=== PATIENT | male | born 1950 | race Caucasian/White ===

== ENCOUNTER 2017-01-26 08:01 | Outpatient (CLI) | payer MEDICARE, BC ==
[2017-01-26 09:11] LABS: #Basophils 0.1 thou/uL (0.0-0.2); #Eosinphils 0.1 thou/uL (0.0-0.7); #Lymphocytes 1.7 thou/uL (1.20-3.40); #Monocytes 0.5 thou/uL (0.11-0.59); #Neutrophils 3.8 thou/uL (1.40-6.50); %Eosinophils 1.4 % (0.0-10.0); %Lymphocytes 27.3 % (21.0-51.0); %Monocytes 8.4 % (0.0-10.0); %Neutrophils 61.9 % (42.0-75.0); Hemoglobin 15.2 g/dL (14.0-18.0); Mean Corpuscular HGB CONC 33.7 g/dL (32.0-36.0); Mean Corpuscular Hemoglobin 33.2 pg (27.0-31.0); Mean Corpuscular Volume 98.7 fl (80.0-94.0); Mean Platelet Volume 4.9 fL (7.4-10.4); Platelet Count 201 thou/uL (130-400); RBC Distribution Width 11.5 % (11.5-14.5); Red Blood Cell (RBC) Count 4.56 mill/uL (4.70-6.10); White Blood Cell (WBC) Count 6.1 thou/uL (4.8-10.8)
[2017-01-26 09:20] LABS: Hemoglobin A1c 5.3 % (4.0-6.0)
[2017-01-26 09:22] LABS: ALT (SGPT) 31 U/L (8-55); Alkaline Phosphatase 63 U/L (40-150); Anion Gap 23 mmol/L (10-20); BUN (Urea Nitrogen) 15 mg/dL (8.4-25.7); Bilirubin, Total 0.6 mg/dL (0.2-1.2); Calc. Creatinine Clearance 0 mL/min (70-130); Calcium 9.6 mg/dL (7.8-10.44); Carbon Dioxide 17 mmol/L (23-31); Chloride 107 mmol/L (98-107); Cholesterol 195 mg/dl (< 200 Desired); Estimated GFR-MDRD Greater than 90; Globulin 3.6 g/dL (2.4-3.5); Glucose 122 mg/dL (80-115); HDL Cholesterol 66 mg/dL (>60 Neg Risk); LDL Cholesterol, Calculated 113 mg/dL; Potassium 5.1 mmol/L (3.5-5.1); Protein, Total 7.6 g/dL (5.8-8.1); Sodium 142 mmol/L (136-145); Triglycerides 80 mg/dL (Less than 150)
[2017-01-26 09:39] LABS: AST (SGOT) 32 U/L (5-34)
[2017-01-27 18:29] LABS: Creatinine, Urine 90.01 mg/dL (63-166); Microalbumin Urine Less than 1.0 mg/dL (0.5-50.0); Microalbumin/Creat Ratio 11.1 mg/g (Less than 30)
== END 2017-01-26 08:02 | disposition home or self-care (01) ==
LOC: NAV LAB 08:01
PROVIDERS: ATTEND Internal Medicine
DX: Z12.5 Encounter for screening for malignant neoplasm of prostate (principal); E78.5 Hyperlipidemia, unspecified; E11.9 Type 2 diabetes mellitus without complications; F32.9 Major depressive disorder, single episode, unspecified
CPT/HCPCS: 36415; 80053; 80061; 82043; 83036; 85025; G0103

== ENCOUNTER 2017-09-26 14:27 | Inpatient (IN) | payer MEDICARE, BC ==
[2017-09-26 14:29] VITALS: BMI 33.6
[2017-09-26] MEDS ORDERED: Bisacodyl 5 MG TAB PO PRN (18:11)
[2017-09-26] MEDS ORDERED: Docusate 100 MG CAP PO PRN (18:11)
[2017-09-26] MEDS ORDERED: HYDROcodone/Acetaminophen 10/325 mg Tablet PO PRN (18:11)
[2017-09-26] MEDS ORDERED: Bisacodyl 10 MG SUPP PR PRN (18:11)
[2017-09-26] MEDS ORDERED: Ondansetron ODT 4 MG TAB PO PRN (18:14)
[2017-09-26] MEDS ORDERED: Dextrose 5% in Water 1,000 ML IV PRN (18:16)
[2017-09-26] MEDS ORDERED: Dextrose 50% Abboject 50 ML SYRINGE SLOW IVP PRN (18:16)
[2017-09-26] MEDS ORDERED: HumaLOG 300 UNITS/3 ML VIAL SC PRN ×2 (18:16)
[2017-09-26] MEDS: Labetalol 100 MG TAB PO SCH (20:38)
[2017-09-26] MEDS: traMADol HCl 50 MG TAB PO SCH (20:39)
[2017-09-26] MEDS: diphenhydrAMINE 25 MG CAP PO PRN (20:39)
[2017-09-26] MEDS: Enoxaparin Sodium 30 MG/0.3 ML SYRINGE SC SCH (20:39)
[2017-09-27 06:51] LABS: Anion Gap 14 mmol/L (10-20); BUN (Urea Nitrogen) 17 mg/dL (8.4-25.7); Calc. Creatinine Clearance 165 mL/min (70-130); Carbon Dioxide 25 mmol/L (23-31); Chloride 102 mmol/L (98-107); Estimated GFR-MDRD Greater than 90; Glucose 105 mg/dL (80-115); Potassium 3.6 mmol/L (3.5-5.1); Sodium 137 mmol/L (136-145)
[2017-09-27 06:54] LABS: #Basophils 0.1 thou/uL (0.0-0.2); #Eosinphils 0.3 thou/uL (0.0-0.7); #Lymphocytes 1.6 thou/uL (1.20-3.40); #Monocytes 1.2 thou/uL (0.11-0.59); %Basophils 1.1 % (0.0-1.0); %Lymphocytes 15.9 % (21.0-51.0); %Neutrophils 68.1 % (42.0-75.0); Mean Corpuscular HGB CONC 33.3 g/dL (32.0-36.0); Mean Corpuscular Hemoglobin 31.8 pg (27.0-31.0); Mean Corpuscular Volume 95.5 fl (80.0-94.0); Mean Platelet Volume 7.5 fL (7.4-10.4); Platelet Count 200 thou/uL (130-400); RBC Distribution Width 11.2 % (11.5-14.5); Red Blood Cell (RBC) Count 3.15 mill/uL (4.70-6.10); White Blood Cell (WBC) Count 10.3 thou/uL (4.8-10.8)
[2017-09-27] MEDS: Fish Oil 1,000 MG CAP PO SCH (09:09)
[2017-09-27] MEDS: Lisinopril 20 MG TAB PO SCH (09:09)
[2017-09-27] MEDS: Labetalol 100 MG TAB PO SCH ×2 (09:09→20:51)
[2017-09-27] MEDS: Aspirin 81 mg Enteric Coated Tablet PO SCH (09:10)
[2017-09-27] MEDS: Hydrochlorothiazide 25 MG TAB PO SCH (09:10)
[2017-09-27] MEDS: traMADol HCl 50 MG TAB PO SCH ×6 (09:10→20:55)
[2017-09-27] MEDS: metFORMIN 500 MG TAB PO SCH (09:10)
[2017-09-27] MEDS: Atorvastatin Calcium 40 MG TAB PO SCH (09:10)
[2017-09-27] MEDS: Ezetimibe 10 MG TAB PO SCH (09:10)
[2017-09-27] MEDS: NIFEdipine XL 30 MG TAB PO SCH (09:10)
[2017-09-27] MEDS: Enoxaparin Sodium 30 MG/0.3 ML SYRINGE SC SCH ×2 (09:11→20:51)
[2017-09-27] MEDS ORDERED: PARoxetine 20 MG TAB PO SCH ×2 (10:45→21:00)
[2017-09-27] MEDS ORDERED: Prevnar 13-Val Conj/PF 0.5 ML SYRINGE IM ONE (12:00)
--- NOTE | 2017-09-27 12:01 | HP ---
DATE OF EXAMINATION: 09/27/2017 CHIEF COMPLAINT: Status post bilateral total knee replacement for physical therapy. BRIEF HISTORY: This is a very pleasant 66-year-old male who underwent bilateral total knee replacement by Dr. Shell at [facility]. No complications. He has been transf erred here for therapy. Currently, Mr. Slade states other than some pain which is well controlled wi th his medications he states that he just wants to get moving and get home. He denies any chest pain or shortness of breath. Denies any fever or chills. Denies any nausea, vomiting or diarrhea. PAST MEDICAL HISTORY: 1. Diabetes mellitus type 2. 2. Hypertension. 3. Dyslipidemia. 4. Degenerative joint disease. 5. Depression and anxiety. PAST SURGICAL HISTORY: 1. 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 He has bilateral arm prosthesis: 2. Recent bilateral total knee replacement. ALLERGIES: No known drug allergies. FAMILY HISTORY: Noncontributory to current admission. PSYCHOSOCIAL HISTORY: No documented tobacco, alcohol or IV drug abuse. He is , active and in dependent. REVIEW OF SYSTEMS: CARDIOVASCULAR: Denies any chest pain, shortness of breath, palpitations, paroxysmal nocturnal dyspn ea, orthopnea, pedal edema. RESPIRATORY: Denies any chronic cough, expectoration or pleuritic type chest pain. GASTROINTESTINAL: Denies any nausea, vomiting, diarrhea, constipation, hematemesis, melena, hematoch ezia. GENITOURINARY: Denies any frequency, urgency, dysuria or hematuria. INTERNAL AUDIT MANAGER: No focal numbness, weakness, fainting spells. HEENT: No difficulty with speech, vision, hearing or swallowing. PHYSICAL EXAMINATION: GENERAL: Very pleasant 66-year-old male resting comfortably in no apparent distress. He r esponds appropriately to questions. He is alert, awake, and oriented x3. No family at bedside. VITAL SIGNS: He is afebrile, heart rate is 77, respirations 20, oxygen saturation 92% on room air, b lood pressure 122/60. HEENT: Normocephalic, atraumatic. Pupils equally reacting to light and accommodation. NECK: No JVD, thyromegaly, cervical adenopathy, throat exudates or carotid bruits. CARDIOVASCULAR: S1, S2 plus, rate and rhythm regular. RESPIRATORY: Normal vesicular breath sounds heard in all lung kevin. ABDOMEN: Soft, nontender, obese. Bowel sounds heard in all quadrants. EXTREMITIES: Without cyanosis or clubbing. Bilateral legs with VINICIUS hose, bilateral knees incision w ith dressing, trace edema bilateral lower extremities. Bilateral upper extremity with prosthesis. INTERNAL AUDIT MANAGER: Generalized weakness, otherwise nonfocal. LABORATORY VALUES: White count is 10.3, H&H is 10 and 30.1. Sodium 137, potassium 3.6. BUN and cre atinine is 17 and 0.7. Blood sugars are 130, 104, 104, 105. IMPRESSION: 1. Degenerative joint disease status post bilateral total knee replacement. 2. Diabetes mellitus type 2, well controlled. 3. Hypertension, well controlled. 4. Dyslipidemia. 5. Deconditioning. 6. Depression and anxiety. 7. Bilateral upper extremity forearm amputation, partial forearm amputation secondary to electrocuti on. PLAN: 1. Continue incision care. 2. 1800 calorie heart healthy ADA diet. 3. Resume home medications. 4. Accu-Cheks with sliding scale coverage. 5. Deep venous thrombosis and stress ulcer prophylaxis. 6. Decubitus precautions. 7. Physical therapy and occupational therapy. 8. Routine laboratory values. 9. Discussed with patient in detail and all questions answered. 10. No family at bedside. 11. Estimated length of stay 7-10 days.
[2017-09-27] MEDS ORDERED: traMADol HCl 50 MG TAB PO SCH (12:45)
[2017-09-27] MEDS: PARoxetine 20 MG TAB PO SCH (20:54)
[2017-09-28] MEDS: Enoxaparin Sodium 30 MG/0.3 ML SYRINGE SC SCH ×2 (08:25→20:25)
[2017-09-28] MEDS: Labetalol 100 MG TAB PO SCH ×2 (08:26→20:24)
[2017-09-28] MEDS: metFORMIN 500 MG TAB PO SCH (08:27)
[2017-09-28] MEDS: NIFEdipine XL 30 MG TAB PO SCH (08:27)
[2017-09-28] MEDS: Atorvastatin Calcium 40 MG TAB PO SCH (08:27)
[2017-09-28] MEDS: Fish Oil 1,000 MG CAP PO SCH (08:27)
[2017-09-28] MEDS: Hydrochlorothiazide 25 MG TAB PO SCH (08:27)
[2017-09-28] MEDS: Ezetimibe 10 MG TAB PO SCH (08:27)
[2017-09-28] MEDS: traMADol HCl 50 MG TAB PO SCH ×5 (08:28→22:20)
[2017-09-28] MEDS: Lisinopril 20 MG TAB PO SCH (08:28)
[2017-09-28] MEDS: Aspirin 81 mg Enteric Coated Tablet PO SCH (08:28)
[2017-09-28] MEDS ORDERED: PARoxetine 20 MG TAB PO SCH (09:00)
--- NOTE | 2017-09-28 15:38 | PRG ---
DATE OF SERVICE: 09/28/2017 SUBJECTIVE: Mr. Slade is doing well except he is having some mucousy incontinence from his bowels an y time he strains or coughs. He is doing well otherwise. OBJECTIVE: VITAL SIGNS: He is afebrile, heart rate 75, respirations 18, oxygen saturation 97% on room air, bloo d pressure 124/66. CARDIOVASCULAR SYSTEM: S1, S2 plus. RESPIRATORY SYSTEM: Normal vesicular breath sounds. ABDOMEN: Soft, nontender, bowel sounds heard in all quadrants. EXTREMITIES: Without cyanosis or clubbing. Both knee incision with dressing. CENTRAL NERVOUS SYSTEM: Grossly nonfocal. LABORATORY DATA: Blood sugars are 104, 115, 114, 106, and 104. IMPRESSION: 1. Status post bilateral total knee replacement. 2. Diabetes mellitus type 2. 3. Hypertension. 4. Dyslipidemia. 5. Bowel incontinence. 6. Depression and anxiety. PLAN: 1. Continue current medications. 2. Nutritional support. 3. DVT and stress ulcer prophylaxis. 4. Decubitus precautions. 5. Incision care. 6. Monitor bowel output and make sure he is not on any regular stool softeners.
[2017-09-28] MEDS: diphenhydrAMINE 25 MG CAP PO PRN (20:23)
[2017-09-28] MEDS: PARoxetine 20 MG TAB PO SCH (20:24)
[2017-09-29] MEDS: Hydrochlorothiazide 25 MG TAB PO SCH (08:43)
[2017-09-29] MEDS: Atorvastatin Calcium 40 MG TAB PO SCH (08:43)
[2017-09-29] MEDS: Lisinopril 20 MG TAB PO SCH (08:43)
[2017-09-29] MEDS: Aspirin 81 mg Enteric Coated Tablet PO SCH (08:43)
[2017-09-29] MEDS: Ezetimibe 10 MG TAB PO SCH (08:43)
[2017-09-29] MEDS: metFORMIN 500 MG TAB PO SCH (08:43)
[2017-09-29] MEDS: Labetalol 100 MG TAB PO SCH ×2 (08:44→20:38)
[2017-09-29] MEDS: traMADol HCl 50 MG TAB PO SCH ×4 (08:44→20:47)
[2017-09-29] MEDS: NIFEdipine XL 30 MG TAB PO SCH (08:44)
[2017-09-29] MEDS: Enoxaparin Sodium 30 MG/0.3 ML SYRINGE SC SCH ×2 (08:45→20:37)
--- NOTE | 2017-09-29 12:58 | PRG ---
DATE OF SERVICE: 09/29/2017 SUBJECTIVE: Mr. Slade is doing the same. Denies any complaints, continues to have increased gas and some loss of control when he is passing gas or he is moving. I did stop his fish oil capsule daily yesterday. I will start him on some probiotics and see if that helps. I cannot see any other reason why he is having this issue. OBJECTIVE: VITAL SIGNS: He is afebrile, heart rate is 72, respirations are 16, blood pressure 131/68, oxygen sa turation is 96% on room air. CARDIOVASCULAR: S1, S2 plus. RESPIRATORY: Normal vesicular breath sounds. ABDOMEN: Soft, nontender, bowel sounds heard in all quadrants. EXTREMITIES: Bilateral upper forearm amputation due to an electrocution injury, bilateral lower extr emities with VINICIUS hose. Knee incision site with dressing. CENTRAL NERVOUS SYSTEM: Grossly nonfocal. LABORATORY VALUES: His blood sugars are 114, 106, 104, 104, 102, and 106. IMPRESSION: 1. Bilateral knee osteoarthritis, status post knee replacement. 2. Diabetes mellitus type 2, excellent control. 3. Hypertension, well controlled. 4. Dyslipidemia. 5. Depression and anxiety. 6. Occasional episodes of bowel incontinence. PLAN: 1. Continue to keep him off his fish oil capsule. 2. Add Florastor 250 mg b.i.d. 3. Incision care. 4. DVT and stress ulcer prophylaxis. 5. Decubitus precautions. 6. 1800 calorie heart-healthy ADA diet. 7. Routine laboratory values. 8. Discussed with patient in detail and all questions answered.
[2017-09-29] MEDS: Saccharomyces boulardii 250 MG CAP PO SCH (20:38)
[2017-09-29] MEDS: diphenhydrAMINE 25 MG CAP PO PRN (20:41)
[2017-09-29] MEDS: PARoxetine 20 MG TAB PO SCH (20:42)
[2017-09-30] MEDS: Aspirin 81 mg Enteric Coated Tablet PO SCH (08:21)
[2017-09-30] MEDS: Enoxaparin Sodium 30 MG/0.3 ML SYRINGE SC SCH ×2 (08:21→20:05)
[2017-09-30] MEDS: Atorvastatin Calcium 40 MG TAB PO SCH (08:21)
[2017-09-30] MEDS: metFORMIN 500 MG TAB PO SCH (08:21)
[2017-09-30] MEDS: Ezetimibe 10 MG TAB PO SCH (08:22)
[2017-09-30] MEDS: Hydrochlorothiazide 25 MG TAB PO SCH (08:22)
[2017-09-30] MEDS: Labetalol 100 MG TAB PO SCH ×2 (08:22→20:05)
[2017-09-30] MEDS: NIFEdipine XL 30 MG TAB PO SCH (08:23)
[2017-09-30] MEDS: Lisinopril 20 MG TAB PO SCH (08:23)
[2017-09-30] MEDS: Saccharomyces boulardii 250 MG CAP PO SCH ×2 (08:24→20:05)
[2017-09-30] MEDS: traMADol HCl 50 MG TAB PO SCH ×5 (08:24→20:09)
--- NOTE | 2017-09-30 13:31 | PRG ---
DATE OF SERVICE: 09/30/2017 SUBJECTIVE: Mr. Slade is doing well. He had a bowel movement. He denies any further leakage. He i s complaining of some pressure sensation in his right ear. His spouse is in the room. No other conc erns or questions. OBJECTIVE: VITAL SIGNS: He is afebrile, heart rate 70, respirations 18, oxygen sats 100, blood pressure 148/69. CARDIOVASCULAR SYSTEM: S1, S2 plus. RESPIRATORY SYSTEM: Normal vesicular breath sounds. ABDOMEN: Soft, nontender, bowel sounds heard in all quadrants. EXTREMITIES: Without cyanosis or clubbing. Bilateral knee incision with dressing. Bilateral upper extremity, forearm amputation secondary to electrocution injury. LABORATORY DATA: His blood sugars are 107, 98, 100 and 109. IMPRESSION: 1. Diabetes mellitus type 2. 2. Hypertension. 3. Dyslipidemia. 4. Depression and anxiety. 5. Resolved bowel incontinence. 6. Bilateral knee osteoarthritis, status post knee replacement. 7. Right ear is showing serous otitis. No impaction of cerumen. PLAN: 1. Increase p.o. fluids. 2. Continue current medications. 3. DVT and stress ulcer prophylaxis. 4. Decubitus precautions. 5. A 1800 calorie Heart healthy ADA diet. 6. Physical therapy. 7. Routine laboratory values. 8. I discussed with the family in detail and all questions answered. 9. Anticipate discharging home by the end of this week if he continues to improve.
[2017-09-30] MEDS: diphenhydrAMINE 25 MG CAP PO PRN (20:04)
[2017-09-30] MEDS: PARoxetine 20 MG TAB PO SCH (20:05)
[2017-10-01] MEDS: metFORMIN 500 MG TAB PO SCH (08:15)
[2017-10-01] MEDS: Ezetimibe 10 MG TAB PO SCH (08:16)
[2017-10-01] MEDS: Enoxaparin Sodium 30 MG/0.3 ML SYRINGE SC SCH ×2 (08:16→20:04)
[2017-10-01] MEDS: Labetalol 100 MG TAB PO SCH ×2 (08:16→20:04)
[2017-10-01] MEDS: Aspirin 81 mg Enteric Coated Tablet PO SCH (08:16)
[2017-10-01] MEDS: Hydrochlorothiazide 25 MG TAB PO SCH (08:16)
[2017-10-01] MEDS: Atorvastatin Calcium 40 MG TAB PO SCH (08:16)
[2017-10-01] MEDS: NIFEdipine XL 30 MG TAB PO SCH (08:17)
[2017-10-01] MEDS: Lisinopril 20 MG TAB PO SCH (08:17)
[2017-10-01] MEDS: Saccharomyces boulardii 250 MG CAP PO SCH ×2 (08:18→20:05)
[2017-10-01] MEDS: traMADol HCl 50 MG TAB PO SCH ×4 (08:18→20:11)
--- NOTE | 2017-10-01 13:32 | PRG ---
DATE OF SERVICE: 10/01/2017 SUBJECTIVE: Mr. Slade is doing well. Denies any complaints, resting comfortably, tolerating his the rapy. Bowel sounds are regular. OBJECTIVE: VITAL SIGNS: He is afebrile, heart rate 65, respirations 20, blood pressure 134/60. Oxygen saturati on is 100% on room air. CARDIOVASCULAR: S1, S2 plus. RESPIRATORY: Normal vesicular breath sounds. ABDOMEN: Soft, obese, nontender, bowel sounds heard in all quadrants. EXTREMITIES: Without cyanosis or clubbing. Bilateral knee incision with dressing. Bilateral VINICIUS ho se present. LABORATORY VALUES: Blood sugars are 100, 109, 114, 121, 105 and 108. IMPRESSION: 1. Bilateral total knee replacement for degenerative joint disease. 2. Diabetes mellitus type 2, well controlled. 3. Depression and anxiety. 4. Bilateral forearm amputation following electrocution injury with prosthesis. 5. Hypertension, well controlled. 6. Dyslipidemia. PLAN: 1. Continue current medications. 2. Nutritional support. 3. DVT and stress ulcer prophylaxis. 4. Decubitus precautions. 5. 1800 calorie heart healthy ADA diet. 6. Accu-Cheks and sliding scale coverage. 7. Incision care. 8. I discussed with the patient in detail, all questions answered.
[2017-10-01] MEDS: PARoxetine 20 MG TAB PO SCH (20:05)
[2017-10-01] MEDS: diphenhydrAMINE 25 MG CAP PO PRN (20:05)
[2017-10-02] MEDS: Labetalol 100 MG TAB PO SCH ×2 (08:46→21:14)
[2017-10-02] MEDS: Lisinopril 20 MG TAB PO SCH (08:46)
[2017-10-02] MEDS: NIFEdipine XL 30 MG TAB PO SCH (08:46)
[2017-10-02] MEDS: metFORMIN 500 MG TAB PO SCH (08:46)
[2017-10-02] MEDS: Aspirin 81 mg Enteric Coated Tablet PO SCH (08:47)
[2017-10-02] MEDS: Enoxaparin Sodium 30 MG/0.3 ML SYRINGE SC SCH ×2 (08:47→21:14)
[2017-10-02] MEDS: Atorvastatin Calcium 40 MG TAB PO SCH (08:47)
[2017-10-02] MEDS: Ezetimibe 10 MG TAB PO SCH (08:47)
[2017-10-02] MEDS: Saccharomyces boulardii 250 MG CAP PO SCH ×2 (08:47→21:16)
[2017-10-02] MEDS: Hydrochlorothiazide 25 MG TAB PO SCH (08:47)
[2017-10-02] MEDS: traMADol HCl 50 MG TAB PO SCH ×4 (08:48→22:37)
--- NOTE | 2017-10-02 13:39 | PRG ---
DATE OF SERVICE: 10/02/2017 SUBJECTIVE: Mr. Slade is doing well. Denies any complaints except he states he had loose bowels thi s morning. He called it diarrhea. Discussed with nursing and he apparently had one bowel movement w ith therapy this morning. OBJECTIVE: VITAL SIGNS: He is afebrile, heart rate is 77, respirations 18, blood pressure 135/62, oxygen satura tion 100% on room air. CARDIOVASCULAR: S1, S2 plus. RESPIRATORY: Normal vesicular breath sounds. ABDOMEN: Soft, nontender, bowel sounds heard in all quadrants, obese. EXTREMITIES: Without cyanosis or clubbing. Bilateral knee incision with dressing. Bilateral upper extremity forearm amputation due to electrocution injury and has prosthesis. REPRODUCTION ORDER PROCESSOR: Improving deconditioning. . Reviewing PT notes and he did walk about 50 feet this morning. Apparently he was noticed to need xin e cueing. We will continue to monitor. IMPRESSION: 1. Degenerative joint disease status post bilateral total knee replacement. 2. Diabetes mellitus type 2, well controlled. 3. Hypertension. 4. Dyslipidemia. 5. Depression and anxiety. 6. Possible loose bowel movement. PLAN: 1. Continue probiotic. 2. He is not on any stool softener or MiraLax 3. Encourage diet. 4. 1800 calorie Heart healthy ADA high fiber diet. 5. Physical therapy. 6. Incision care. 7. DVT and stress ulcer prophylaxis. 8. Accu-Cheks. 9. Discussed with patient and spouse in detail and all questions answered.
[2017-10-02] MEDS: PARoxetine 20 MG TAB PO SCH (21:16)
[2017-10-03] MEDS: Aspirin 81 mg Enteric Coated Tablet PO SCH (08:28)
[2017-10-03] MEDS: NIFEdipine XL 30 MG TAB PO SCH (08:28)
[2017-10-03] MEDS: Saccharomyces boulardii 250 MG CAP PO SCH ×2 (08:28→20:14)
[2017-10-03] MEDS: Atorvastatin Calcium 40 MG TAB PO SCH (08:28)
[2017-10-03] MEDS: metFORMIN 500 MG TAB PO SCH (08:28)
[2017-10-03] MEDS: Ezetimibe 10 MG TAB PO SCH (08:29)
[2017-10-03] MEDS: Labetalol 100 MG TAB PO SCH ×2 (08:29→20:12)
[2017-10-03] MEDS: traMADol HCl 50 MG TAB PO SCH ×4 (08:29→20:14)
[2017-10-03] MEDS: Hydrochlorothiazide 25 MG TAB PO SCH (08:29)
[2017-10-03] MEDS: Lisinopril 20 MG TAB PO SCH (08:29)
[2017-10-03] MEDS: Enoxaparin Sodium 30 MG/0.3 ML SYRINGE SC SCH ×2 (08:30→20:12)
--- NOTE | 2017-10-03 13:03 | PRG ---
DATE OF SERVICE: 10/03/2017 SUBJECTIVE: Mr. Slade is doing the same except he is having some mucousy stools again. He states th at normally at home, he takes 2 Imodium and that takes care of it. Denies any abdominal pain, fever or chills. He also states that his left knee seems to buckle after taking 15 steps. I called therap y and left them a message for them to call me back to see if they have any concerns or questions. OBJECTIVE: VITAL SIGNS: He is afebrile, heart rate is 70, respirations 18, oxygen saturation is 100% on room ai r, and blood pressure 133/63. CARDIOVASCULAR SYSTEM: S1, S2 plus. RESPIRATORY SYSTEM: Normal vesicular breath sounds. ABDOMEN: Soft, nontender, bowel sounds heard in all quadrants. EXTREMITIES: Without cyanosis or clubbing. Bilateral knee incision with dressing. IMPRESSION: 1. Loose stools, apparently this has happened to him in the past and Imodium worked, so we will orde r some Imodium. 2. Degenerative joint disease, status post bilateral total knee replacement. 3. Diabetes mellitus type 2, well controlled. 4. His blood sugars are 113, 120, 122 and 131. 5. Hypertension. 6. Dyslipidemia. PLAN: 1. Continue current medications. 2. Accu-Cheks decreased to b.i.d. 3. A 1800 calorie Heart healthy ADA diet. 4. Imodium 2 tablets q.6 hours p.r.n. 5. High fiber diet. 6. Increase p.o. fluid. 7. Await therapy's callback. 8. Routine laboratory values. 9. No family at bedside.
[2017-10-03] MEDS: Loperamide HCl 2 MG CAP PO PRN ×2 (13:30→20:14)
[2017-10-03] MEDS: PARoxetine 20 MG TAB PO SCH (20:13)
[2017-10-03] MEDS: diphenhydrAMINE 25 MG CAP PO PRN (20:14)
[2017-10-04] MEDS: Enoxaparin Sodium 30 MG/0.3 ML SYRINGE SC SCH ×2 (08:51→20:08)
[2017-10-04] MEDS: Atorvastatin Calcium 40 MG TAB PO SCH (08:52)
[2017-10-04] MEDS: traMADol HCl 50 MG TAB PO SCH ×4 (08:52→20:10)
[2017-10-04] MEDS: Saccharomyces boulardii 250 MG CAP PO SCH ×2 (08:52→20:09)
[2017-10-04] MEDS: Lisinopril 20 MG TAB PO SCH (08:53)
[2017-10-04] MEDS: Aspirin 81 mg Enteric Coated Tablet PO SCH (08:53)
[2017-10-04] MEDS: Ezetimibe 10 MG TAB PO SCH (08:53)
[2017-10-04] MEDS: Labetalol 100 MG TAB PO SCH ×2 (08:53→20:08)
[2017-10-04] MEDS: NIFEdipine XL 30 MG TAB PO SCH (08:53)
[2017-10-04] MEDS: metFORMIN 500 MG TAB PO SCH (08:54)
[2017-10-04] MEDS: Hydrochlorothiazide 25 MG TAB PO SCH (08:54)
--- NOTE | 2017-10-04 09:20 | PRG ---
DATE OF SERVICE: 10/04/2017 SUBJECTIVE: Mr. Slade is doing well. His diarrhea has pretty much resolved. He is still having a l ot of gas, mostly related to his pain medications. I advised him that we will try some simethicone. He is doing well otherwise. I discussed with therapy yesterday and therapy is happy with his progre ss, they do not see any issues except for some limited extension of his left knee and they are workin g on it. No other concerns or questions. He has an appointment with Dr. Shell on Saturday. OBJECTIVE: VITAL SIGNS: He is afebrile, heart rate 73, respirations 20, oxygen saturation 92%, blood pressure 1 27/59. CARDIOVASCULAR: S1, S2 plus. RESPIRATORY: Normal vesicular breath sounds. ABDOMEN: Soft, obese, nontender, bowel sounds heard in all quadrants. EXTREMITIES: Without cyanosis or clubbing. Bilateral knee incision with dressing. CENTRAL NERVOUS SYSTEM: Grossly nonfocal. IMPRESSION: 1. Bilateral total knee replacement for degenerative joint disease. 2. Diabetes mellitus type 2, well controlled. 3. Hypertension. 4. Dyslipidemia. 5. Depression and anxiety. 6. Increase gas, possibly related to gastritis from his pain medications. PLAN: 1. Trial of simethicone 160 mg t.i.d. 2. Continue current medications. 3. Incision care. 4. DVT and stress ulcer prophylaxis. 5. Decubitus precautions. 6. 1800 calorie heart healthy ADA diet. 7. Recheck laboratories in the morning. 8. Follow up with Dr. Shell on Saturday. 9. Dr. Dye on-call this weekend. Discussed with patient in detail and all questions answered.
[2017-10-04] MEDS: PARoxetine 20 MG TAB PO SCH (20:09)
[2017-10-04] MEDS: Simethicone Chewable 80 MG TAB PO PRN (20:10)
[2017-10-04] MEDS: diphenhydrAMINE 25 MG CAP PO PRN (20:10)
[2017-10-05 05:53] LABS: Band 3 % (5-11); Eosinophils 1 % (0-10); Hemoglobin 11.6 g/dL (14.0-18.0); Lymphocytes 32 % (21-51); MDiff Complete? YES; Mean Corpuscular HGB CONC 32.6 g/dL (32.0-36.0); Mean Corpuscular Hemoglobin 30.8 pg (27.0-31.0); Mean Corpuscular Volume 94.3 fl (80.0-94.0); Mean Platelet Volume 5.7 fL (7.4-10.4); Monocytes 10 % (0-10); Neutrophil 54 % (42-75); PLT Morphology Comment Appears Increased; Platelet Count 592 thou/uL (130-400); RBC Distribution Width 11.4 % (11.5-14.5); RBC Morphology Normal; Red Blood Cell (RBC) Count 3.77 mill/uL (4.70-6.10); White Blood Cell (WBC) Count 9.9 thou/uL (4.8-10.8)
[2017-10-05 05:54] LABS: Anion Gap 14 mmol/L (10-20); BUN (Urea Nitrogen) 20 mg/dL (8.4-25.7); Calc. Creatinine Clearance 154 mL/min (70-130); Calcium 9.5 mg/dL (7.8-10.44); Carbon Dioxide 25 mmol/L (23-31); Chloride 102 mmol/L (98-107); Estimated GFR-MDRD Greater than 90; Glucose 108 mg/dL (80-115); Potassium 3.8 mmol/L (3.5-5.1); Sodium 137 mmol/L (136-145)
[2017-10-05] MEDS: metFORMIN 500 MG TAB PO SCH (08:27)
[2017-10-05] MEDS: Atorvastatin Calcium 40 MG TAB PO SCH (08:27)
[2017-10-05] MEDS: Aspirin 81 mg Enteric Coated Tablet PO SCH (08:27)
[2017-10-05] MEDS: Enoxaparin Sodium 30 MG/0.3 ML SYRINGE SC SCH ×2 (08:27→20:17)
[2017-10-05] MEDS: Ezetimibe 10 MG TAB PO SCH (08:28)
[2017-10-05] MEDS: Hydrochlorothiazide 25 MG TAB PO SCH (08:28)
[2017-10-05] MEDS: Labetalol 100 MG TAB PO SCH ×2 (08:28→20:17)
[2017-10-05] MEDS: Saccharomyces boulardii 250 MG CAP PO SCH ×2 (08:29→20:17)
[2017-10-05] MEDS: Lisinopril 20 MG TAB PO SCH (08:29)
[2017-10-05] MEDS: NIFEdipine XL 30 MG TAB PO SCH (08:29)
[2017-10-05] MEDS: traMADol HCl 50 MG TAB PO SCH ×4 (08:30→20:28)
[2017-10-05] MEDS: Simethicone Chewable 80 MG TAB PO PRN ×2 (08:32→20:24)
[2017-10-05] MEDS ORDERED: Cyclobenzaprine 10 MG TAB PO SCH (19:30)
--- NOTE | 2017-10-05 20:02 | PRG ---
DATE OF SERVICE: 10/05/[address] Lela Gibson, who is status post bilateral total knee replacement, degener ative joint disease and is having minimal pain in his knees, good range of motion, but significant we akness and recurrent muscle spasms. He states that his knees are feeling better, but his legs are ge tting weaker and he cannot walk. He is due to see his orthopedic surgeon in 2 days to have her stapl es removed. OBJECTIVE: GENERAL: Shows both knees appear to be healing well with no erythema, warmth or drainage. LUNGS: Lungs are clear. CARDIAC: Regular rhythm. SKIN AND EXTREMITIES: Show pedal pulses 2+ and equal. There is no swelling of the calves. VITAL SIGNS: Temperature is 98, pulse 64, respirations 18, O2 sats 97% on room air, blood pressure 1 28/59. LABORATORY DATA: White count 9900, hematocrit 35, hemoglobin 11, platelet count 592,000. Accu-Cheks range 109-128, sodium 137, potassium 3.8, chloride 102, bicarbonate 25, BUN 20, creatinine 0.75, glu cose is 108. ASSESSMENT: A 66-year-old white male with a history of type 2 diabetes who has undergone bilateral t otal knee replacement with no evidence of infection and is healing well, but is having significant we akness in his legs and spasm. He also has well controlled hypertension, stable depression, and anxie ty. PLAN: Cyclobenzaprine 10 mg at night. Continue previous medications. Continue DVT and stress ulcer prophylaxis. Follow up with Dr. Shell in 2 days.
[2017-10-05] MEDS: Loperamide HCl 2 MG CAP PO PRN (20:16)
[2017-10-05] MEDS: diphenhydrAMINE 25 MG CAP PO PRN (20:16)
[2017-10-05] MEDS: PARoxetine 20 MG TAB PO SCH (20:17)
--- NOTE | 2017-10-06 08:33 | PRG ---
DATE OF SERVICE: 10/06/2017 SUBJECTIVE: The patient states that his muscle cramps are slightly improved on cyclobenzaprine last night and did not have any significant pain. OBJECTIVE: VITAL SIGNS: Blood pressure is 128/59, temperature 98, pulse 64, respirations 18, O2 sats 97%. LUNGS: Clear. CARDIAC EXAMINATION: Shows regular rhythm. SKIN AND EXTREMITIES: Do show persistent muscle spasms, but appears to be improved. ASSESSMENT: 1. Status post bilateral total knee replacement with no evidence of infection, swelling, and increas ing range of motion of the knees, see Dr. Shell tomorrow. 2. Recurrent muscle spasms, unknown etiology, but significant and slightly improved with cyclobenzap rine, so we will increase to 10 mg 3 times daily and monitor. 3. Hypertension, controlled to goal. 4. Stable depression. PLAN: Increase cyclobenzaprine to 10 mg 3 times daily. Continue deep venous thrombosis and stress u lcer prophylaxis. Follow with Dr. Shell tomorrow. Change tramadol to p.r.n. as not taking routine ly.
[2017-10-06] MEDS: Aspirin 81 mg Enteric Coated Tablet PO SCH (08:37)
[2017-10-06] MEDS: Enoxaparin Sodium 30 MG/0.3 ML SYRINGE SC SCH ×2 (08:37→20:02)
[2017-10-06] MEDS: metFORMIN 500 MG TAB PO SCH (08:37)
[2017-10-06] MEDS: Atorvastatin Calcium 40 MG TAB PO SCH (08:37)
[2017-10-06] MEDS: Ezetimibe 10 MG TAB PO SCH (08:38)
[2017-10-06] MEDS: Hydrochlorothiazide 25 MG TAB PO SCH (08:38)
[2017-10-06] MEDS: Labetalol 100 MG TAB PO SCH ×2 (08:38→20:01)
[2017-10-06] MEDS: Lisinopril 20 MG TAB PO SCH (08:39)
[2017-10-06] MEDS: NIFEdipine XL 30 MG TAB PO SCH (08:40)
[2017-10-06] MEDS: Saccharomyces boulardii 250 MG CAP PO SCH ×2 (08:40→20:02)
[2017-10-06] MEDS: Simethicone Chewable 80 MG TAB PO PRN (08:44)
[2017-10-06] MEDS: Cyclobenzaprine 10 MG TAB PO PRN ×3 (08:44→23:36)
[2017-10-06] MEDS: PARoxetine 20 MG TAB PO SCH (20:00)
[2017-10-06] MEDS: diphenhydrAMINE 25 MG CAP PO PRN (22:34)
[2017-10-07] MEDS: Labetalol 100 MG TAB PO SCH ×2 (08:10→20:22)
[2017-10-07] MEDS: Aspirin 81 mg Enteric Coated Tablet PO SCH (08:10)
[2017-10-07] MEDS: metFORMIN 500 MG TAB PO SCH (08:10)
[2017-10-07] MEDS: NIFEdipine XL 30 MG TAB PO SCH (08:10)
[2017-10-07] MEDS: Saccharomyces boulardii 250 MG CAP PO SCH ×2 (08:10→20:23)
[2017-10-07] MEDS: Hydrochlorothiazide 25 MG TAB PO SCH (08:10)
[2017-10-07] MEDS: Cyclobenzaprine 10 MG TAB PO PRN ×2 (08:11→20:23)
[2017-10-07] MEDS: Lisinopril 20 MG TAB PO SCH (08:11)
[2017-10-07] MEDS: Atorvastatin Calcium 40 MG TAB PO SCH (08:11)
[2017-10-07] MEDS: Enoxaparin Sodium 30 MG/0.3 ML SYRINGE SC SCH ×2 (08:11→20:21)
[2017-10-07] MEDS: Ezetimibe 10 MG TAB PO SCH (08:11)
[2017-10-07] MEDS: Simethicone Chewable 80 MG TAB PO PRN ×2 (08:17→20:26)
--- NOTE | 2017-10-07 12:58 | PRG ---
DATE OF SERVICE: 10/07/2017 SUBJECTIVE: Mr. Slade is doing well. Denies any complaints except still having episodes of gas and cramping. He is scheduled to see Dr. Shell today. OBJECTIVE: VITAL SIGNS: He is afebrile, heart rate is 64, respirations 17, oxygen saturation 97, blood pressure 122/71. CARDIOVASCULAR: S1, S2 plus. RESPIRATORY: Normal vesicular breath sounds. ABDOMEN: Soft, nontender, bowel sounds heard in all quadrants. EXTREMITIES: Without cyanosis or clubbing. Bilateral knee incision with dressing. IMPRESSION: 1. Diabetes mellitus type 2. 2. Hypertension. 3. Dyslipidemia. 4. Depression and anxiety. 5. Status post bilateral total knee replacements. 6. Increased bloating and gurgling and possible irritable bowel. PLAN: 1. Trial of Bentyl 10 mg t.i.d. 2. Continue simethicone. 3. Nutritional support. 4. DVT and stress ulcer prophylaxis. 5. Decubitus precautions. 6. Routine laboratory values. 7. I discussed with the patient in detail and all questions answered.
[2017-10-07] MEDS: traMADol HCl 50 MG TAB PO PRN (14:29)
[2017-10-07] MEDS: Dicyclomine 20 MG TAB PO SCH ×2 (16:43→20:21)
[2017-10-07] MEDS: PARoxetine 20 MG TAB PO SCH (20:22)
[2017-10-08] MEDS: Cyclobenzaprine 10 MG TAB PO PRN ×3 (07:25→23:58)
[2017-10-08] MEDS: Saccharomyces boulardii 250 MG CAP PO SCH ×2 (08:46→20:18)
[2017-10-08] MEDS: Atorvastatin Calcium 40 MG TAB PO SCH (08:46)
[2017-10-08] MEDS: NIFEdipine XL 30 MG TAB PO SCH (08:46)
[2017-10-08] MEDS: Enoxaparin Sodium 30 MG/0.3 ML SYRINGE SC SCH ×2 (08:46→20:16)
[2017-10-08] MEDS: metFORMIN 500 MG TAB PO SCH (08:46)
[2017-10-08] MEDS: Dicyclomine 20 MG TAB PO SCH ×3 (08:46→20:16)
[2017-10-08] MEDS: Ezetimibe 10 MG TAB PO SCH (08:47)
[2017-10-08] MEDS: Labetalol 100 MG TAB PO SCH ×2 (08:47→20:16)
[2017-10-08] MEDS: Aspirin 81 mg Enteric Coated Tablet PO SCH (08:47)
[2017-10-08] MEDS: Hydrochlorothiazide 25 MG TAB PO SCH (08:47)
[2017-10-08] MEDS: Lisinopril 20 MG TAB PO SCH (08:48)
[2017-10-08] MEDS: Simethicone Chewable 80 MG TAB PO PRN ×2 (08:55→20:20)
--- NOTE | 2017-10-08 13:10 | PRG ---
DATE OF SERVICE: 10/08/2017 SUBJECTIVE: Mr. Slade is doing well. Denies any complaints, resting comfortably. He states that th e Bentyl is helping. He had a good visit with Dr. Shell. His dressings have been removed. He jus t has some steri tapes. Denies any concerns or questions. His is in the room today, as it is h is birthday. OBJECTIVE: VITAL SIGNS: He is afebrile, heart rate 64, respirations 17, oxygen saturation is 100% on room air, blood pressure 128/63. CARDIOVASCULAR SYSTEM: S1 and S2 plus. RESPIRATORY SYSTEM: Normal vesicular breath sounds. ABDOMEN: Soft, nontender, bowel sounds heard in all quadrants. EXTREMITIES: Without cyanosis or clubbing. Bilateral knee incisions are helping. IMPRESSION: 1. Degenerative joint disease, status post bilateral total knee replacement. 2. Diabetes mellitus, type 2, well controlled. Blood sugars are 99, 101, 113, 109, and 109. 3. Hypertension. 4. Dyslipidemia. 5. Possible irritable bowel syndrome - much improved with the Bentyl. PLAN: 1. Continue current medications. 2. A 1800 calorie-heart healthy diet. 3. Deep vein thrombosis and stress ulcer prophylaxis. 4. Decubitus precautions. 5. Physical therapy. 6. Nutritional support. 7. Routine laboratory values. Discussed with patient and in detail and all questions answered.
[2017-10-08] MEDS: PARoxetine 20 MG TAB PO SCH (20:17)
[2017-10-08] MEDS: traMADol HCl 50 MG TAB PO PRN (20:18)
[2017-10-09] MEDS: metFORMIN 500 MG TAB PO SCH (08:27)
[2017-10-09] MEDS: Aspirin 81 mg Enteric Coated Tablet PO SCH (08:27)
[2017-10-09] MEDS: Ezetimibe 10 MG TAB PO SCH (08:28)
[2017-10-09] MEDS: Atorvastatin Calcium 40 MG TAB PO SCH (08:28)
[2017-10-09] MEDS: Dicyclomine 20 MG TAB PO SCH ×3 (08:28→20:39)
[2017-10-09] MEDS: Enoxaparin Sodium 30 MG/0.3 ML SYRINGE SC SCH ×2 (08:28→20:39)
[2017-10-09] MEDS: Hydrochlorothiazide 25 MG TAB PO SCH (08:28)
[2017-10-09] MEDS: Lisinopril 20 MG TAB PO SCH (08:29)
[2017-10-09] MEDS: Labetalol 100 MG TAB PO SCH ×2 (08:29→20:39)
[2017-10-09] MEDS: NIFEdipine XL 30 MG TAB PO SCH (08:30)
[2017-10-09] MEDS: Saccharomyces boulardii 250 MG CAP PO SCH ×2 (08:30→20:40)
[2017-10-09] MEDS: Cyclobenzaprine 10 MG TAB PO PRN ×2 (08:32→20:39)
--- NOTE | 2017-10-09 14:14 | PRG ---
DATE OF SERVICE: 10/09/2017 SUBJECTIVE: Mr. Slade is doing well. Denies any complaints. Abdominal bloating and discomfort is i mproving with the Bentyl. He apparently walked more with therapy. He denies any complaints. No fam wanda at bedside. OBJECTIVE: VITAL SIGNS: He is afebrile, heart rate 70, respirations 20, oxygen saturation 100%, and blood press ure 124/68. CARDIOVASCULAR: S1 and S2 plus. RESPIRATORY: Normal vesicular breath sounds. ABDOMEN: Soft, obese, nontender, bowel sounds heard in all quadrants. EXTREMITIES: Bilateral knee incision with dressing, bilateral upper extremity amputation with prosth esis. CENTRAL NERVOUS SYSTEM: Improving deconditioning. LABORATORY VALUES: Blood sugars are 113, 109, 109, 114, and 98. IMPRESSION: 1. Bilateral total knee replacement for degenerative joint disease. 2. Diabetes mellitus type 2. 3. Hypertension. 4. Dyslipidemia. 5. Increased bloating, likely related to his pain medications. 6. Improving deconditioning. PLAN: 1. Continue Bentyl. 2. A 1800 calorie heart-healthy ADA diet. 3. Accu-Cheks with sliding scale coverage. 4. DVT and stress ulcer prophylaxis. 5. Decubitus precautions. 6. Routine laboratory values. 7. I discussed with the patient in detail and all questions were answered.
[2017-10-09] MEDS: traMADol HCl 50 MG TAB PO PRN (16:28)
[2017-10-09] MEDS: PARoxetine 20 MG TAB PO SCH (20:39)
[2017-10-09] MEDS: Simethicone Chewable 80 MG TAB PO PRN (20:43)
[2017-10-10] MEDS: metFORMIN 500 MG TAB PO SCH (08:12)
[2017-10-10] MEDS: Atorvastatin Calcium 40 MG TAB PO SCH (08:13)
[2017-10-10] MEDS: Dicyclomine 20 MG TAB PO SCH ×3 (08:13→20:29)
[2017-10-10] MEDS: Aspirin 81 mg Enteric Coated Tablet PO SCH (08:13)
[2017-10-10] MEDS: Enoxaparin Sodium 30 MG/0.3 ML SYRINGE SC SCH ×2 (08:14→20:30)
[2017-10-10] MEDS: Ezetimibe 10 MG TAB PO SCH (08:14)
[2017-10-10] MEDS: Hydrochlorothiazide 25 MG TAB PO SCH (08:15)
[2017-10-10] MEDS: Lisinopril 20 MG TAB PO SCH (08:15)
[2017-10-10] MEDS: Labetalol 100 MG TAB PO SCH ×2 (08:15→20:28)
[2017-10-10] MEDS: Loperamide HCl 2 MG CAP PO PRN (08:16)
[2017-10-10] MEDS: NIFEdipine XL 30 MG TAB PO SCH (08:16)
[2017-10-10] MEDS: Saccharomyces boulardii 250 MG CAP PO SCH ×2 (08:16→20:29)
[2017-10-10] MEDS: Simethicone Chewable 80 MG TAB PO PRN ×2 (08:18→20:34)
[2017-10-10] MEDS: Cyclobenzaprine 10 MG TAB PO PRN ×2 (08:19→20:29)
[2017-10-10] MEDS: traMADol HCl 50 MG TAB PO PRN (10:00)
--- NOTE | 2017-10-10 13:47 | PRG ---
DATE OF SERVICE: 10/10/2017 SUBJECTIVE: Mr. Slade is doing well. Denies any complaints. Resting comfortably. Abdominal bloati ng is improved. I saw him ambulating and he is still not locking his knees. Therapy is working with him on that. No other concerns or questions. His is at his side as well. OBJECTIVE: VITAL SIGNS: He is afebrile, heart rate 78, respirations 20, blood pressure 132/66. CARDIOVASCULAR: S1, S2 plus. RESPIRATORY: Normal vesicular breath sounds. ABDOMEN: Soft, obese, nontender. Bowel sounds heard in all quadrants. EXTREMITIES: Bilateral knee incisions are healthy. Bilateral upper extremities with prosthesis. LABORATORY VALUES: Blood sugars are 109, 114, 98, 117 and 104. IMPRESSION: 1. Degenerative joint disease status post bilateral total knee replacement. 2. Diabetes mellitus type 2, excellent control. 3. Hypertension, well controlled. 4. Dyslipidemia. 5. Possible gastritis/colic due to pain medications. PLAN: 1. Continue current medications. 2. Physical therapy. 3. DVT and stress ulcer prophylaxis. 4. Decubitus precautions. 5. 1800-calorie heart healthy ADA diet. 6. Accu-Cheks. 7. Routine laboratory values.
[2017-10-10] MEDS: PARoxetine 20 MG TAB PO SCH (20:28)
[2017-10-10] MEDS: diphenhydrAMINE 25 MG CAP PO PRN (22:58)
[2017-10-11 06:50] LABS: #Basophils 0.1 thou/uL (0.0-0.2); #Eosinphils 0.3 thou/uL (0.0-0.7); #Lymphocytes 2.2 thou/uL (1.20-3.40); #Neutrophils 5.1 thou/uL (1.40-6.50); %Basophils 1.1 % (0.0-1.0); %Eosinophils 3.5 % (0.0-10.0); %Monocytes 11.4 % (0.0-10.0); %Neutrophils 59.1 % (42.0-75.0); Hemoglobin 11.1 g/dL (14.0-18.0); Mean Corpuscular Hemoglobin 30.8 pg (27.0-31.0); Mean Corpuscular Volume 93.5 fl (80.0-94.0); Mean Platelet Volume 6.4 fL (7.4-10.4); Platelet Count 509 thou/uL (130-400); Red Blood Cell (RBC) Count 3.61 mill/uL (4.70-6.10); White Blood Cell (WBC) Count 8.7 thou/uL (4.8-10.8)
[2017-10-11 07:02] LABS: Anion Gap 12 mmol/L (10-20); BUN (Urea Nitrogen) 17 mg/dL (8.4-25.7); Calc. Creatinine Clearance 141 mL/min (70-130); Calcium 9.6 mg/dL (7.8-10.44); Carbon Dioxide 27 mmol/L (23-31); Chloride 103 mmol/L (98-107); Estimated GFR-MDRD Greater than 90; Glucose 108 mg/dL (80-115); Potassium 4.3 mmol/L (3.5-5.1); Sodium 138 mmol/L (136-145)
[2017-10-11] MEDS: Lisinopril 20 MG TAB PO SCH (09:27)
[2017-10-11] MEDS: Aspirin 81 mg Enteric Coated Tablet PO SCH (09:27)
[2017-10-11] MEDS: Atorvastatin Calcium 40 MG TAB PO SCH (09:27)
[2017-10-11] MEDS: metFORMIN 500 MG TAB PO SCH (09:27)
[2017-10-11] MEDS: Labetalol 100 MG TAB PO SCH ×2 (09:28→20:42)
[2017-10-11] MEDS: Dicyclomine 20 MG TAB PO SCH ×3 (09:28→20:42)
[2017-10-11] MEDS: Ezetimibe 10 MG TAB PO SCH (09:28)
[2017-10-11] MEDS: Saccharomyces boulardii 250 MG CAP PO SCH ×2 (09:29→20:41)
[2017-10-11] MEDS: Hydrochlorothiazide 25 MG TAB PO SCH (09:29)
[2017-10-11] MEDS: NIFEdipine XL 30 MG TAB PO SCH (09:29)
[2017-10-11] MEDS: Enoxaparin Sodium 30 MG/0.3 ML SYRINGE SC SCH ×2 (09:29→20:41)
[2017-10-11] MEDS: traMADol HCl 50 MG TAB PO PRN (09:31)
[2017-10-11] MEDS: Simethicone Chewable 80 MG TAB PO PRN (09:31)
--- NOTE | 2017-10-11 12:06 | PRG ---
DATE OF SERVICE: 10/11/2017 SUBJECTIVE: Mr. Slade is doing well. Denies any complaints except for some bloating. He is continu ing to work with therapy and working on extending his leg and getting his knees started locking. OBJECTIVE: VITAL SIGNS: He is afebrile, heart rate is 67, respiration 16, blood pressure 129/62. CARDIOVASCULAR: S1, S2 plus. RESPIRATORY: Normal vesicular breath sounds. ABDOMEN: Soft, nontender, bowel sounds heard in all quadrants. EXTREMITIES: Without cyanosis or clubbing. IMPRESSION: 1. Bilateral total knee replacement. 2. Diabetes mellitus type 2. 3. Hypertension. 4. Dyslipidemia. 5. Stomach irritation likely due to his pain medications. PLAN: 1. Discontinue Flexeril. The patient states it is not helping. 2. A 1800 calorie Heart healthy ADA diet. 3. Accu-Cheks with sliding scale coverage. 4. Deep venous thrombosis and stress ulcer prophylaxis. 5. Decubitus precautions. 6. Routine laboratory values.
[2017-10-11] MEDS: PARoxetine 20 MG TAB PO SCH (20:41)
[2017-10-12] MEDS: diphenhydrAMINE 25 MG CAP PO PRN ×2 (01:10→23:16)
[2017-10-12] MEDS: Dicyclomine 20 MG TAB PO SCH ×3 (09:19→20:13)
[2017-10-12] MEDS: Saccharomyces boulardii 250 MG CAP PO SCH ×2 (09:19→20:11)
[2017-10-12] MEDS: Hydrochlorothiazide 25 MG TAB PO SCH (09:19)
[2017-10-12] MEDS: metFORMIN 500 MG TAB PO SCH (09:19)
[2017-10-12] MEDS: Atorvastatin Calcium 40 MG TAB PO SCH (09:19)
[2017-10-12] MEDS: Lisinopril 20 MG TAB PO SCH (09:20)
[2017-10-12] MEDS: Ezetimibe 10 MG TAB PO SCH (09:20)
[2017-10-12] MEDS: NIFEdipine XL 30 MG TAB PO SCH (09:20)
[2017-10-12] MEDS: Aspirin 81 mg Enteric Coated Tablet PO SCH (09:20)
[2017-10-12] MEDS: Enoxaparin Sodium 30 MG/0.3 ML SYRINGE SC SCH ×2 (09:21→20:23)
[2017-10-12] MEDS: Labetalol 100 MG TAB PO SCH ×2 (09:21→20:12)
--- NOTE | 2017-10-12 16:26 | PRG ---
DATE OF SERVICE: 10/12/2017 SUBJECTIVE: Mr. Slade is doing well. Denies any complaints, resting comfortably. He apparently had a couple of episodes of hallucinations mainly at night, and he thinks it is the muscle relaxant. He does take Seroquel and Paxil, but those are his home medications. OBJECTIVE: VITAL SIGNS: He is afebrile, heart rate 63, respirations 18, oxygen saturation 95%, blood pressure 1 31/78. CARDIOVASCULAR SYSTEM: S1 and S2 plus. RESPIRATORY SYSTEM: Normal vesicular breath sounds. ABDOMEN: Soft, obese, nontender, bowel sounds heard in all quadrants. EXTREMITIES: Without cyanosis or clubbing. Bilateral knee incisions are healthy. LABORATORY DATA: Blood sugars are 98, 121, 93, 135, and 107. IMPRESSION: 1. Bilateral total knee replacement for degenerative joint disease. 2. Diabetes mellitus, type 2, well controlled. 3. Hypertension. 4. Dyslipidemia. 5. Depression. 6. Stomach irritation and increased bloating, likely secondary to his pain medications. PLAN: 1. Continue Bentyl, which seems to be helping. 2. Continue other medications. 3. 1800 calorie heart healthy ADA diet. 4. DVT and stress ulcer prophylaxis. 5. Decubitus precautions. 6. Routine laboratory values. 7. Physical therapy. 8. Incision care. 9. Discussed with patient in detail and all questions answered.
[2017-10-12] MEDS: Simethicone Chewable 80 MG TAB PO PRN (20:11)
[2017-10-12] MEDS: PARoxetine 20 MG TAB PO SCH (20:13)
[2017-10-13] MEDS: Enoxaparin Sodium 30 MG/0.3 ML SYRINGE SC SCH ×2 (08:26→20:38)
[2017-10-13] MEDS: Simethicone Chewable 80 MG TAB PO PRN ×2 (08:28→20:38)
[2017-10-13] MEDS: Lisinopril 20 MG TAB PO SCH (08:28)
[2017-10-13] MEDS: Labetalol 100 MG TAB PO SCH ×2 (08:28→20:38)
[2017-10-13] MEDS: NIFEdipine XL 30 MG TAB PO SCH (08:28)
[2017-10-13] MEDS: Hydrochlorothiazide 25 MG TAB PO SCH (08:28)
[2017-10-13] MEDS: Aspirin 81 mg Enteric Coated Tablet PO SCH (08:28)
[2017-10-13] MEDS: metFORMIN 500 MG TAB PO SCH (08:29)
[2017-10-13] MEDS: Atorvastatin Calcium 40 MG TAB PO SCH (08:29)
[2017-10-13] MEDS: Loperamide HCl 2 MG CAP PO PRN (08:29)
[2017-10-13] MEDS: Saccharomyces boulardii 250 MG CAP PO SCH ×2 (08:29→20:38)
[2017-10-13] MEDS: Ezetimibe 10 MG TAB PO SCH (08:29)
[2017-10-13] MEDS: Dicyclomine 20 MG TAB PO SCH (08:29)
--- NOTE | 2017-10-13 11:49 | PRG ---
DATE OF SERVICE: 10/13/2017 SUBJECTIVE: Mr. Slade is doing well except he is still having those episodes of hallucinations. He does take Benadryl at night. I advised him that this may be more related to an anticholinergic side effect. He is on Bentyl plus he is also taking Benadryl. The patient states the Bentyl is helping, but not much and he really would like to try to get off those medicines. I advised him I will start him on some sleeping pill and get him off the Bentyl as well as the Benadryl and see how he does. OBJECTIVE: VITAL SIGNS: He is afebrile, heart rate is 66, respirations are 20, oxygen saturation 100% on room a ir, blood pressure 146/67. CARDIOVASCULAR: S1, S2 plus. RESPIRATORY: Normal vesicular breath sounds. ABDOMEN: Soft, nontender, bowel sounds heard in all quadrants. EXTREMITIES: Without cyanosis or clubbing. Bilateral knee incisions are healthy. IMPRESSION: 1. Degenerative joint disease status post bilateral total knee replacement. 2. Diabetes mellitus type 2. 3. Hypertension. 4. Depression and anxiety. 5. Possible irritable bowel syndrome. PLAN: 1. Stop Bentyl. 2. Stop Benadryl. 3. Add Ambien. 4. Monitor hallucinations. 5. A 1800 calorie Heart healthy ADA diet. 6. Accu-Cheks with sliding scale coverage. 7. Incision care. 8. Physical therapy. 9. Routine laboratory values. 10. Discussed with patient in detail. All questions answered. No family at bedside.
[2017-10-13] MEDS: Zolpidem Tartrate 5 MG TAB PO PRN (20:38)
[2017-10-13] MEDS: PARoxetine 20 MG TAB PO SCH (20:39)
[2017-10-14] MEDS: Aspirin 81 mg Enteric Coated Tablet PO SCH (08:32)
[2017-10-14] MEDS: metFORMIN 500 MG TAB PO SCH (08:32)
[2017-10-14] MEDS: Atorvastatin Calcium 40 MG TAB PO SCH (08:32)
[2017-10-14] MEDS: Hydrochlorothiazide 25 MG TAB PO SCH (08:32)
[2017-10-14] MEDS: NIFEdipine XL 30 MG TAB PO SCH (08:33)
[2017-10-14] MEDS: Ezetimibe 10 MG TAB PO SCH (08:33)
[2017-10-14] MEDS: Lisinopril 20 MG TAB PO SCH (08:33)
[2017-10-14] MEDS: Labetalol 100 MG TAB PO SCH ×2 (08:33→21:03)
[2017-10-14] MEDS: Enoxaparin Sodium 30 MG/0.3 ML SYRINGE SC SCH ×2 (08:33→21:01)
[2017-10-14] MEDS: Saccharomyces boulardii 250 MG CAP PO SCH ×2 (08:34→21:02)
--- NOTE | 2017-10-14 13:32 | PRG ---
DATE OF SERVICE: 10/14/2017 SUBJECTIVE: Mr. Slade apparently slept great last night. No hallucinations. He is off the Bentyl a nd Benadryl, and on the Ambien, still having some stiffness issues with his left leg. OBJECTIVE: VITAL SIGNS: He is afebrile, heart rate is 72, respirations are 18, blood pressure 137/84. CARDIOVASCULAR: S1, S2 plus. RESPIRATORY: Normal vesicular breath sounds. ABDOMEN: Soft, nontender, bowel sounds heard in all quadrants. EXTREMITIES: Without cyanosis or clubbing. Incisions are healthy in both knees. LABORATORY VALUES: Blood sugars are 115, 122, 118, and 87. IMPRESSION: 1. Diabetes mellitus type 2. 2. Hypertension. 3. Dyslipidemia. 4. Depression and anxiety. 5. Bilateral total knee replacement. PLAN: 1. Continue current medications. 2. Nutritional support. 3. DVT and stress ulcer prophylaxis. 4. Decubitus precautions. 5. Incision care. 6. Physical therapy.
[2017-10-14] MEDS: Simethicone Chewable 80 MG TAB PO PRN (21:02)
[2017-10-14] MEDS: PARoxetine 20 MG TAB PO SCH (21:02)
[2017-10-14] MEDS: Zolpidem Tartrate 5 MG TAB PO PRN (21:04)
[2017-10-15] MEDS: Enoxaparin Sodium 30 MG/0.3 ML SYRINGE SC SCH ×2 (08:04→20:46)
[2017-10-15] MEDS: Aspirin 81 mg Enteric Coated Tablet PO SCH (08:04)
[2017-10-15] MEDS: metFORMIN 500 MG TAB PO SCH (08:04)
[2017-10-15] MEDS: Atorvastatin Calcium 40 MG TAB PO SCH (08:04)
[2017-10-15] MEDS: Hydrochlorothiazide 25 MG TAB PO SCH (08:05)
[2017-10-15] MEDS: Labetalol 100 MG TAB PO SCH ×2 (08:05→20:45)
[2017-10-15] MEDS: Ezetimibe 10 MG TAB PO SCH (08:05)
[2017-10-15] MEDS: NIFEdipine XL 30 MG TAB PO SCH (08:08)
[2017-10-15] MEDS: Saccharomyces boulardii 250 MG CAP PO SCH ×2 (08:08→20:45)
[2017-10-15] MEDS: Simethicone Chewable 80 MG TAB PO PRN ×2 (08:08→20:45)
[2017-10-15] MEDS: Lisinopril 20 MG TAB PO SCH (08:08)
--- NOTE | 2017-10-15 13:36 | PRG ---
DATE OF SERVICE: 10/15/2017 SUBJECTIVE: Mr. Slade is doing well. Denies any complaints, slept great. He ambulated around the [facility] discussed with therapy and they feel like he may do better if he is transferred to an inpatient rehab facility, they feel that he has reached maximum medical improvement here, but if he c an have more therapy and the equipment he may do better. I am going to make a referral for them to a ssess him. OBJECTIVE: VITAL SIGNS: He is afebrile, heart rate is 67, respirations 19, oxygen saturation 95% on room air, b lood pressure 140/63. CARDIOVASCULAR: S1, S2 plus. RESPIRATORY: Normal vesicular breath sounds. ABDOMEN: Soft, nontender, bowel sounds heard in all quadrants. EXTREMITIES: Without cyanosis or clubbing. Bilateral knee incision is healthy. LABORATORY VALUES: Blood sugars are 118, 87, 103, 94. IMPRESSION: 1. Bilateral total knee replacement for degenerative joint disease. 2. Diabetes mellitus type 2, well controlled. 3. Hypertension. 4. Dyslipidemia. 5. Depression and anxiety. PLAN: 1. Continue current medications. 2. Nutritional support. 3. Referral to [facility]. 4. Deep venous thrombosis and stress ulcer prophylaxis. 5. Decubitus precautions. 6. 1800 calorie heart healthy ADA diet.
[2017-10-15] MEDS: PARoxetine 20 MG TAB PO SCH (20:46)
[2017-10-15] MEDS: Zolpidem Tartrate 5 MG TAB PO PRN (20:46)
[2017-10-16] MEDS: Atorvastatin Calcium 40 MG TAB PO SCH (08:24)
[2017-10-16] MEDS: metFORMIN 500 MG TAB PO SCH (08:24)
[2017-10-16] MEDS: Enoxaparin Sodium 30 MG/0.3 ML SYRINGE SC SCH ×2 (08:24→19:39)
[2017-10-16] MEDS: Ezetimibe 10 MG TAB PO SCH (08:24)
[2017-10-16] MEDS: Saccharomyces boulardii 250 MG CAP PO SCH ×2 (08:24→19:41)
[2017-10-16] MEDS: Labetalol 100 MG TAB PO SCH ×2 (08:25→19:40)
[2017-10-16] MEDS: Lisinopril 20 MG TAB PO SCH (08:25)
[2017-10-16] MEDS: NIFEdipine XL 30 MG TAB PO SCH (08:25)
[2017-10-16] MEDS: Hydrochlorothiazide 25 MG TAB PO SCH (08:26)
[2017-10-16] MEDS: Aspirin 81 mg Enteric Coated Tablet PO SCH (08:26)
[2017-10-16] MEDS: PARoxetine 20 MG TAB PO SCH (19:40)
[2017-10-16] MEDS: Simethicone Chewable 80 MG TAB PO PRN (19:41)
[2017-10-16] MEDS: Zolpidem Tartrate 5 MG TAB PO PRN (21:05)
[2017-10-17 07:59] VITALS: BP 135/63; TEMP 97.2
[2017-10-17] MEDS: Enoxaparin Sodium 30 MG/0.3 ML SYRINGE SC SCH (08:23)
[2017-10-17] MEDS: Atorvastatin Calcium 40 MG TAB PO SCH (08:23)
[2017-10-17] MEDS: Hydrochlorothiazide 25 MG TAB PO SCH (08:24)
[2017-10-17] MEDS: Saccharomyces boulardii 250 MG CAP PO SCH (08:24)
[2017-10-17] MEDS: NIFEdipine XL 30 MG TAB PO SCH (08:24)
[2017-10-17] MEDS: Aspirin 81 mg Enteric Coated Tablet PO SCH (08:24)
[2017-10-17] MEDS: metFORMIN 500 MG TAB PO SCH (08:24)
[2017-10-17] MEDS: Ezetimibe 10 MG TAB PO SCH (08:24)
[2017-10-17] MEDS: Lisinopril 20 MG TAB PO SCH (08:25)
[2017-10-17] MEDS: Labetalol 100 MG TAB PO SCH (08:25)
[2017-10-17] MEDS: Simethicone Chewable 80 MG TAB PO PRN (08:28)
--- NOTE | 2017-10-17 20:18 | DIS ---
DATE OF ADMISSION: 09/26/2017 DATE OF DISCHARGE: 10/17/2017 PRINCIPAL DIAGNOSIS: Degenerative joint disease, status post bilateral total knee replacement. SECONDARY DIAGNOSES: 1. Diabetes mellitus type 2. 2. Hypertension. 3. Dyslipidemia. 4. Depression and anxiety. 5. Stomach irritation due to pain medications. 6. Insomnia. 7. 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 COMPLICATIONS: None. ADVERSE REACTIONS: None. PROCEDURES: None. CONSULTATIONS: Physical therapy and occupational therapy. HOSPITAL COURSE: The patient was admitted on 09/26/2017 after undergoing bilateral total knee replac ement by Dr. Shell. He has been slowly improving with therapy, but he has been having some abdomin al issues and it was felt that he may be having a reaction to his pain medications. He has been doin g well on simethicone and Florastor. He was started on Bentyl, but it did not help. He also was angie ing Benadryl at night, was having episodes of hallucinations, and when both the Bentyl and Benadryl w ere discontinued and Ambien started, he has been doing great ever since. He has reached maximum medi jefry improvement here, but therapy feel that he would be a good candidate for inpatient rehabilitation , he is not ready to go home yet. Rehab evaluated him and I have accepted him as a patient and he is going to be transferred to inpatient rehabilitation today. PHYSICAL EXAMINATION: On the day of discharge, VITAL SIGNS: He is afebrile, heart rate is 65, respirations 16, oxygen saturation is 97% on room air , blood pressure is 135/63. CARDIOVASCULAR: S1, S2 plus. RESPIRATORY: Normal vesicular breath sounds. ABDOMEN: Soft, obese, nontender. Bowel sounds heard in all quadrants. EXTREMITIES: Without cyanosis or clubbing. Trace edema bilaterally. Knee incision is healthy. Michael ateral upper arms, status post electrocution and prosthesis placement. LABORATORY VALUES: Last CBC was 10/11/2017, white count 8.7, H&H 11.1 and 33.7. Blood sugars are 11 7, 116, 112, and 94. Last BMP was also on 10/11/2017, sodium 138, potassium 4.3, BUN and creatinine 17 and 0.81. DISCHARGE MEDICATIONS: 1. [place] 10/325, one tablet q.4 hours p.r.n. pain. 2. Ecotrin 81 mg daily. 3. Lipitor 40 mg daily. 4. Dulcolax suppository 10 mg SD daily p.r.n. 5. Colace 100 mg p.o. b.i.d. p.r.n. 6. Lovenox 30 mg subcutaneously q.12 hours, which he should be able to go to just 40 mg subcu daily. 7. Zetia 10 mg daily. 8. HCTZ 25 mg daily. 9. Labetalol 300 mg b.i.d. 10. Lisinopril 40 mg daily. 11. Metformin 500 mg in the morning. 12. Procardia XL 60 mg daily. 13. Protonix 40 mg daily. 14. Paxil 10 mg at night. 15. Seroquel 100 mg at night. 16. Florastor 250 mg b.i.d. 17. Ambien 5 mg p.o. at bedtime p.r.n. DIET: 1800 calorie, heart healthy ADA diet. ORTHOPEDIC RESTRICTIONS: He will be followed by me in consult and he will be admitted under the Phys ical, Medicine, and Rehabilitation doctors. He is to call me with any questions or concerns. Total time spent on this discharge, 40 minutes.
== END 2017-10-17 17:15 | DRG 560 ==
LOC: NAV ACUTE 14:27
PROVIDERS: ADMIT Internal Medicine; ATTEND Internal Medicine
DX: Z47.1 Aftercare following joint replacement surgery (principal); R44.3 Hallucinations, unspecified; R15.9 Full incontinence of feces; E11.9 Type 2 diabetes mellitus without complications; Z96.653 Presence of artificial knee joint, bilateral; I10 Essential (primary) hypertension; E78.5 Hyperlipidemia, unspecified; F32.9 Major depressive disorder, single episode, unspecified; F41.9 Anxiety disorder, unspecified; Z89.212 Acquired absence of left upper limb below elbow; Z89.211 Acquired absence of right upper limb below elbow; R14.0 Abdominal distension (gaseous); T40.605A Adverse effect of unspecified narcotics, initial encounter; K58.9 Irritable bowel syndrome, unspecified; H66.91 Otitis media, unspecified, right ear; G47.00 Insomnia, unspecified
CPT/HCPCS: 36415; 36416; 80048; 85025; J1650

== ENCOUNTER 2018-11-19 20:00 | Emergency (ER) | payer MEDICARE, BC ==
[2018-11-19 20:29] LABS: Bilirubin Negative (Negative); Blood, Urine Trace (Negative); Glucose, Urine (Dipstick) Negative (Negative); Leukocyte Large (Negative); Nitrite Negative (Negative); Protein, Urine (Dipstick) Negative (Neg-Trace); Specific Gravity, Urine 1.015 (1.005-1.030); Urobilinogen 0.2 mg/dL (0.2-1.0); pH, Urine 8.5 (5.0-9.0)
[2018-11-19] MEDS ORDERED: Sodium Chloride 0.9% 1,000 ML ONE (20:34)
[2018-11-19 20:51] LABS: Clarity SL HAZY (Clear)
[2018-11-19 20:53] LABS: Bacteria/HPF 3+ HPF (None Seen)
[2018-11-19 21:04] LABS: ALT (SGPT) 22 U/L (8-55); AST (SGOT) 23 U/L (5-34); Albumin 4.3 g/dL (3.4-4.8); Alkaline Phosphatase 81 U/L (40-150); Anion Gap 17 mmol/L (10-20); BUN (Urea Nitrogen) 18 mg/dL (8.4-25.7); Bilirubin, Total 0.3 mg/dL (0.2-1.2); Calc. Creatinine Clearance 0 mL/min (70-130); Calcium 9.9 mg/dL (7.8-10.44); Carbon Dioxide 24 mmol/L (23-31); Chloride 96 mmol/L (98-107); Estimated GFR-MDRD 74; Globulin 3.8 g/dL (2.4-3.5); Glucose 132 mg/dL (80-115); Potassium 4.2 mmol/L (3.5-5.1); Protein, Total 8.1 g/dL (5.8-8.1); Sodium 133 mmol/L (136-145)
[2018-11-19 21:06] LABS: #Basophils 0.1 thou/uL (0.0-0.2); #Eosinphils 0.2 thou/uL (0.0-0.7); #Lymphocytes 1.6 thou/uL (1.20-3.40); #Monocytes 1.1 thou/uL (0.11-0.59); #Neutrophils 12.4 thou/uL (1.40-6.50); %Basophils 0.7 % (0.0-1.0); %Eosinophils 1.3 % (0.0-10.0); %Lymphocytes 10.4 % (21.0-51.0); %Monocytes 7.3 % (0.0-10.0); %Neutrophils 80.4 % (42.0-75.0); Hemoglobin 11.9 g/dL (14.0-18.0); Mean Corpuscular HGB CONC 32.3 g/dL (32.0-36.0); Mean Corpuscular Hemoglobin 28.4 pg (27.0-31.0); Mean Corpuscular Volume 87.9 fL (78.0-98.0); Mean Platelet Volume 5.6 fL (7.4-10.4); Platelet Count 340 thou/uL (130-400); RBC Distribution Width 14.6 % (11.5-14.5); Red Blood Cell (RBC) Count 4.21 mill/uL (4.70-6.10); White Blood Cell (WBC) Count 15.4 thou/uL (4.8-10.8)
[2018-11-19] MEDS ORDERED: Ondansetron ODT 4 MG TAB ONE (21:24)
[2018-11-19] MEDS ORDERED: Sulfameth/Trimethoprim DS 800-160mg TAB ONE (21:24)
[2018-11-19] MEDS ORDERED: cefTRIAXone\\ROCEPHIN 1 GM VIAL ONE (21:24)
[2018-11-19] MEDS ORDERED: Lidocaine 1% (PF) 30 ML VIAL ONE (21:25)
[2018-11-19] MEDS ORDERED: Ibuprofen 200 MG TAB ONE (21:45)
== END 2018-11-19 21:59 | disposition home or self-care (01) ==
LOC: NAV ERS 20:00
DX: N39.0 Urinary tract infection, site not specified (principal); D72.829 Elevated white blood cell count, unspecified; E11.9 Type 2 diabetes mellitus without complications; E78.5 Hyperlipidemia, unspecified; I10 Essential (primary) hypertension; F32.9 Major depressive disorder, single episode, unspecified; F17.210 Nicotine dependence, cigarettes, uncomplicated; Z79.899 Other long term (current) drug therapy; Z79.84 Long term (current) use of oral hypoglycemic drugs
CPT/HCPCS: 80053; 81003; 81015; 83605; 85025; 87040; 87077; 87086; 96360; 96372; J0696; J2001; J7050; Q0162

== ENCOUNTER 2019-02-25 17:10 | Emergency (ER) | payer MEDICARE, BC ==
[2019-02-25 18:42] LABS: Bilirubin Negative (Negative); Blood, Urine Large (Negative); Glucose, Urine (Dipstick) Negative (Negative); Leukocyte Moderate (Negative); Nitrite Negative (Negative); Protein, Urine (Dipstick) > or equal to 300 mg/dL (Neg-Trace); Urobilinogen 0.2 mg/dL (Less than 2)
[2019-02-25 18:44] LABS: Clarity Hazy (Clear); RBC/HPF Greater than 50 HPF (0-3); WBC/HPF Greater Than 50 HPF (0-3)
[2019-02-25 18:45] LABS: Bacteria/HPF Rare-Few HPF (None Seen); Squamous Epithelial 0-3 HPF (0-3)
== END 2019-02-25 19:38 | disposition home or self-care (01) ==
LOC: NAV ERS 17:10
DX: T83.091A Other mechanical complication of indwelling urethral catheter, initial encounter (principal); I10 Essential (primary) hypertension; E78.5 Hyperlipidemia, unspecified; E11.9 Type 2 diabetes mellitus without complications; F17.210 Nicotine dependence, cigarettes, uncomplicated; Z79.899 Other long term (current) drug therapy
CPT/HCPCS: 51703; 81003; 81015; 87086